=== PATIENT | female | born 1990 | race Caucasian/White ===

== ENCOUNTER → 2020-02-14 13:08 | Outpatient (BNVA) | payer MEDICAID, SELFPAY | PROVIDERS: Family Provider Family Medicine; Visit Provider Obstetrics & Gynecology | DX: N93.9 Abnormal uterine and vaginal bleeding, unspecified (principal) | CPT/HCPCS: 76830 ==

== ENCOUNTER → 2020-02-28 13:46 | Outpatient (BNVA) | payer MEDICAID, SELFPAY | PROVIDERS: Family Provider Family Medicine; Visit Provider Obstetrics & Gynecology | DX: Z30.9 Encounter for contraceptive management, unspecified (principal); N93.9 Abnormal uterine and vaginal bleeding, unspecified | CPT/HCPCS: 81025 ==

== ENCOUNTER → 2020-04-10 10:07 | Outpatient (BNVA) | payer BC, MEDICAID, SELFPAY | PROVIDERS: Family Provider Family Medicine; Visit Provider Obstetrics & Gynecology | DX: N93.9 Abnormal uterine and vaginal bleeding, unspecified (principal) | CPT/HCPCS: 85025 ==

== ENCOUNTER → 2021-04-23 15:29 | Outpatient (BNVA) | payer BC, MEDICAID, SELFPAY | PROVIDERS: Family Provider Family Medicine; Visit Provider Obstetrics & Gynecology | DX: D64.9 Anemia, unspecified (principal) | CPT/HCPCS: 85025 ==

== ENCOUNTER 2022-11-04 08:03 | Outpatient (CLI) | payer BC, MEDICAID, SELFPAY ==
--- NOTE | 2022-11-04 08:12 | CT_ITS ---
WS: [id number] CT PELVIS NONCONTRAST HISTORY: IRREGULAR MENSTRUATION/ABN UTERINE VAGINAL BLEEDING TECHNIQUE: Contiguous imaging is performed of the pelvis without contrast. Coronal and sagittal refor mats are reviewed. All CT scans at [facility] use at least one of these dose optimization mani hniques: automated exposure control; mA and/or kV adjustment per patient size (includes targeted exam s where dose is matched to clinical indication); or iterative reconstruction. DLP: 250.77 mGy.cm COMPARISON: Ultrasound 02/14/2020 Mildly retroverted uterus. Uterine measurements are difficult on CT but the uterus does appear slight ly enlarged extending over a length of 9.2 cm. There is mild fluid distention of the endometrial cavi ty. Several small follicles within the RIGHT ovary. No cyst. No LEFT adnexal masses. The visualized GI tr act in the pelvis is normal. No free fluid. No adenopathy. Mild SI joint arthritis. IMPRESSION: 1. Mildly enlarged slightly retroverted uterus. 2. Recommend transvaginal pelvic ultrasound evaluation to evaluate for dysfunctional uterine bleeding .
== END 2022-11-04 08:04 | disposition home or self-care (01) ==
PROVIDERS: Family Provider Family Medicine; Visit Provider Nurse Practitioner Family
DX: N92.6 Irregular menstruation, unspecified (principal); N93.9 Abnormal uterine and vaginal bleeding, unspecified; N85.2 Hypertrophy of uterus; N85.4 Malposition of uterus
CPT/HCPCS: 72192

== ENCOUNTER 2022-11-06 10:33 | Emergency (ER) | payer BC, MEDICAID, SELFPAY ==
[2022-11-06 11:06] VITALS: BP 133/90; PULSE 90; RESP 16; TEMP 36.8; O2SAT 95
--- NOTE | 2022-11-06 11:19 | XR_ITS ---
WS: [id number] Exam: XR knee RT 3V* [id number] Date/Time of Exam: 11/06/2022 11:23 AM Reason For Exam: dislocation yesterday; laxity Comparison 03/20/2009. No acute fracture or dislocation. Ovoid calcification in the central joint probably a synovial osteoc hondroma. No joint effusion. IMPRESSION: 1. No fracture or dislocation. 2. 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
--- NOTE | 2022-11-06 11:19 | ED_ITS ---
HPI - Extremity Injury (Lower) General: Chief Complaint: Extremity Problem,Nontraumatic Stated Complaint: previous knee dislocation, wants xrays Time Seen by Provider: 11/06/22 10:37 Source: patient Mode of arrival: ambulatory Limitations: no limitations History of Present Illness: Patient is a 32-year-old female who presents to the emergency department complaining of right knee pain status post patellar dislocation last night. 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 However, today she states that she has been walking around extra sore and states that she is fearful that it is going to become dislocated again. She presents stating that she would like x-rays to make sure that structurally everything is normal, and wants to know if she can possibly obtain a brace for her knee. She states that the right knee is minimally swollen compared to the left, but otherwise she has no significant concerns in terms of pain or other symptoms. She was able to ambulate as normal, though as mentioned she is fearful of dislocating again. She denies any history of hypermobility disorders. complaint: knee injury Onset (ago): day(s) Injury: Right: knee (Patellar dislocation) Place: home Relieving factors: immobilization Exacerbating factors: weight bearing and movement Other symptoms: none Review of Systems Const: Denies: fever(s) or chills Eyes: Denies: change in vision or blurry vision Card: Denies: chest pain, palpitations, irregular heart rhythm, lightheadedness, syncope or dyspnea on exertion Resp: Denies: dyspnea, productive cough or pain on inspiration GI: Denies: abdominal pain, nausea, vomiting, heartburn or diarrhea : Denies: dysuria Musc: Reports: joint pain (R knee); Denies: neck pain, back pain, extremity pain (Right knee), extremity swelling (Right knee), joint swelling, joint redness, joint warmth or limited range of motion Skin/Breast: Denies: rash Neuro: Denies: numbness in extremities, weakness in extremities or sensory changes COUNT INCLUDES THE [facility] ED PFSH: Medical History No pertinent past medical history Denies diabetes, asthma, hypertension, seizures, DVT/PE PMD: Tati Huffman Surgical History No pertinent past surgical history Family History Grandmother Colon cancer maternal, diagnosed at age 86 Denies family history of Ovarian cancer Diabetes Heart disease Breast cancer Bleeding disorder Uterine cancer Thyroid disease Stroke Physical Exam Const: COMMON NORMALS: no acute distress, patient oriented x3, alert and well nourished GENERAL APPEARANCE: cooperative and comfortable ORIENTATION/CONSCIOUSNESS: Yes awake Extremity: COMMON NORMALS: full ROM, capillary refill normal, no joint enlargement, no clubbing, cyanosis or edema, no calf tenderness and no pedal edema NARRATIVE EXTREMITY EXAM: The right knee is minimally swollen compared to the left. No signs of trauma, bruising, or deformity. The right patella is hypermobile compared to the left. Normal range of motion bilaterally without pain. No significant signs of joint effusion. No tenderness to palpation over bony landmarks. RIGHT LOWER EXTREMITY: Yes knee joint Right knee: Yes inspection (normal gross inspection), Yes ROM (normal) and Yes neurovascular exam (normal) Neuro: COMMON NORMALS: patient oriented x3 SENSORIUM/ORIENTATION: Yes alert Skin: COMMON NORMALS: no rashes or lesions noted GENERAL SKIN EXAM: no rashes or lesions noted Course Vital Signs: Vital signs: Vital Signs Temperature 98.2 F 11/06/22 11:06 Pulse Rate 80 11/06/22 12:03 Respiratory Rate 16 11/06/22 12:03 Blood Pressure 140/82 11/06/22 12:03 Pulse Oximetry 97 11/06/22 12:03 MDM - Extremity Injury (Lower) Medical Decision Making Patient's x-ray showing an osteochondroma but otherwise normal. Patella was reduced yesterday by patient. She will be placed in an IVETTE wrap here with directions to obtain a Velcro knee sleeve or neoprene brace to help support. We will get her follow-up with orthopedics. Discharge Plan Discharge Patient Disposition: Home Clinical Impression: Dislocation of right patella Qualifiers: Encounter type: initial encounter Qualified Code(s): S83.004A - Unspecified dislocation of right patella, initial encounter Condition: Stable Prescriptions: No Action ascorbic acid (vitamin C) 500 mg capsule PO prenat.vits,dulce maria,[id number] Tablet 1 tab PO DAILY Mirena 20 mcg/24 hours (6 yrs) 52 mg intrauterine device 1 device intrauterine .every 5 years Qty: 1 0RF Discharge Orders: Discharge ED (Routine); Ordered 11/06/22 Ordered By: Rani Ley Patient Instructions: Patellar Dislocation (ED) Activity Restrictions/Additional Instructions: As discussed, you may obtain a Velcro or neoprene knee sleeve for support of your right knee. Case management should reach out to you shortly in regards to orthopedic evaluation. 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
[2022-11-06 12:03] VITALS: BP 140/82; PULSE 80; RESP 16; O2SAT 97
--- NOTE | 2022-11-06 15:21 | DCPLANNER ---
Addendum entered by Barbara Jarvis 11/08/22 13:45: reservation manager received the following message from the ortho clinic regarding follow up appointment: spoke to patient mom Emelyn, as far as she knew Sue was having to hold off on any treatment for the knee at this time. she needs to wait for summer due to school. Mom is going to relay our msg and have her call us back to confirm this. Original Note: reservation manager had message to schedule a follow up appointment for patient with ortho. reservation manager sent patients information to the front office staff at ortho. Patients information will be printed and reviewed. Clinic will call patient with appointment information.
--- NOTE | 2022-11-07 11:36 | DCPLANNER ---
secondary market manager called patient due to no primary care physician - patient sees Tati Huffman at [facility]
== END 2022-11-06 12:05 | disposition home or self-care (01) ==
PROVIDERS: Emergency Provider Physician Assistant; PCP Nurse Practitioner Family
DX: S83.004A Unspecified dislocation of right patella, initial encounter (principal); D21.21 Benign neoplasm of connective and other soft tissue of right lower limb, including hip; X58.XXXA Exposure to other specified factors, initial encounter
CPT/HCPCS: 73562; 99283

== ENCOUNTER → 2022-12-16 10:22 | Outpatient (BNVA) | payer BC, MEDICAID, SELFPAY | PROVIDERS: PCP Nurse Practitioner Family; Visit Provider Obstetrics & Gynecology | DX: N92.6 Irregular menstruation, unspecified (principal); N83.202 Unspecified ovarian cyst, left side; N83.201 Unspecified ovarian cyst, right side | CPT/HCPCS: 76830 ==

== ENCOUNTER → 2023-01-13 09:00 | Outpatient (BNVA) | payer BC, MEDICAID, SELFPAY | PROVIDERS: PCP Nurse Practitioner Family; Visit Provider Obstetrics & Gynecology | DX: N92.6 Irregular menstruation, unspecified (principal) | CPT/HCPCS: 84443; 85025 ==

== ENCOUNTER 2023-01-27 09:34 | Emergency (ER) | payer BC, MEDICAID, SELFPAY ==
[2023-01-27 09:42] VITALS: BP 159/84; PULSE 82; RESP 18; O2SAT 100; BMI 36.3
[2023-01-27 09:48] VITALS: BP 159/84; PULSE 87; RESP 18; TEMP 36.6; O2SAT 100
--- NOTE | 2023-01-27 09:49 | XRR_ITS ---
PROCEDURE INFORMATION: Exam: XR Chest Exam date and time: 01/27/2023 10:03 AM Age: 32 years old Clinical indication: Cough; Additional info: Cough, back pain TECHNIQUE: Imaging protocol: Radiologic exam of the chest. Views: 1 view. COMPARISON: No relevant prior studies available. FINDINGS: Lungs: Unremarkable. No consolidation. Pleural spaces: Unremarkable. No pleural effusion. No pneumothorax. Heart/Mediastinum: Unremarkable. No cardiomegaly. Bones/joints: Unremarkable. XR/XR chest 1V portable [id number] IMPRESSION: No acute findings.
--- NOTE | 2023-01-27 09:50 | W.ED.URI ---
HPI - URI/Sore Throat General: Chief Complaint: Back Pain/Injury Stated Complaint: back pain, bad cough Time Seen by Provider: 01/27/23 09:35 Source: patient Mode of arrival: ambulatory Limitations: no limitations History of Present Illness: Patient is a nice 32-year-old female presents to ED today with complaint of a cough over the past 2 months and left-sided back pain that she began noticing approximately 3 days ago. She does feel like back pain is worse with coughing and movement. She states when cough initially started she was placed on azithromycin by her primary care provider. She thought symptoms were improving but then they returned and have been present since. No hemoptysis. She is an everyday smoker. She reports feeling like she cannot take a deep breath. No severe dyspnea or dyspnea with exertion. Denies nasal congestion, rhinorrhea, sore throat. She has not had any fevers during the course of her illness. MD elicited complaint: cough Onset (ago): month(s) Consistency: constant Severity: moderate Description of mucous: clear Able to tolerate fluids by mouth: Yes Exacerbating factors: other (movement/coughing worsens back pain) Associated symptoms: Deny abdominal pain, chills, chest pain, diarrhea, fever(s), headache(s), nausea or vomiting Treatments prior to arrival: none Review of Systems Const: Denies: fever(s), chills, body aches, fatigue or malaise Eyes: Denies: change in vision or blurry vision Card: Denies: chest pain, palpitations, irregular heart rhythm, edema, swelling of feet/ankles, lightheadedness, syncope, pre-syncope, dyspnea on exertion, orthopnea, leg pain with exertion or acrocyanosis Resp: Reports: non-productive cough and chest congestion; Denies: dyspnea, productive cough, wheezing, pain on inspiration or hemoptysis GI: Denies: abdominal pain, nausea, vomiting, heartburn or diarrhea : Denies: flank pain, difficulty voiding, dysuria, urinary frequency, urinary urgency or urinary hesitancy Musc: Reports: back pain; Denies: neck pain, extremity pain, extremity swelling, joint pain, joint swelling, joint redness or joint warmth Skin/Breast: Denies: rash Neuro: Denies: headache(s), numbness in extremities, weakness in extremities, sensory changes or dizziness PFSH ED PFSH: Medical History No pertinent past medical history Denies diabetes, asthma, hypertension, seizures, DVT/PE PMD: Tati Huffman Surgical History No pertinent past surgical history Family History Grandmother Colon cancer maternal, diagnosed at age 86 Denies family history of Ovarian cancer Diabetes Heart disease Breast cancer Bleeding disorder Uterine cancer Thyroid disease Stroke Physical Exam Const: COMMON NORMALS: no acute distress, average body habitus, patient oriented x3, no limitations, healthy appearing, alert and well nourished ORIENTATION/CONSCIOUSNESS: Yes awake, Yes oriented to person, Yes oriented to place and Yes oriented to time HENMT: COMMON NORMALS: normocephalic, atraumatic and Normal external nose present HEAD & SCALP: normal to inspection, normocephalic and atraumatic FACE & SINUS: normal facial exam and sinuses nontender NOSE: Normal external nose present MOUTH: Normal oral and palatal mucosa present, lip normal and tongue normal THROAT: posterior oropharynx normal, tonsils normal and uvula midline Eye: GENERAL EYE: appearance normal, both eyes and all related structures Neck/C-Spine: COMMON NORMALS: full ROM, no lymphadenopathy, supple and no meningeal signs Chest: COMMONS NORMALS: normal inspection of the chest OTHER: mild TTP L posteriolateral chest wall Resp: COMMON NORMALS: normal respiratory effort and clear to auscultation bilaterally AUSCULTATION: clear to auscultation bilaterally Cardio: COMMON NORMALS: regular rate and regular rhythm RATE: regular rate RHYTHM: regular rhythm GI: COMMON NORMALS: Normal to inspection, nondistended, normoactive bowel sounds present, Soft to palpation, non-tender, No hepatosplenomegaly present and no masses PALPATION: Yes Soft to palpation and Yes No hepatosplenomegaly present : COMMON NORMALS: Yes no CVA tenderness BLADDER/KIDNEY EXAM: Yes no CVA tenderness Back/Pelvis: COMMON NORMALS: no CVA tenderness, thoracic and lumbar spine normal to inspection, no thoracic nor lumbar tenderness and thoraco-lumbar ROM normal Extremity: COMMON NORMALS: normal to inspection, capillary refill normal, no clubbing, cyanosis or edema, no calf tenderness and no pedal edema GENERAL: Yes normal exam except as noted Neuro: COMMON NORMALS: patient oriented x3, moves all extremities, no focal motor deficits, no sensory deficits noted and gait normal SENSORIUM/ORIENTATION: Yes alert, Yes oriented to person, Yes oriented to place and Yes oriented to time MENINGEAL SIGNS: Yes no meningeal signs Skin: COMMON NORMALS: no rashes or lesions noted GENERAL SKIN EXAM: no rashes or lesions noted Course Vital Signs: Vital signs: Vital Signs Temperature 97.9 F 01/27/23 09:48 Pulse Rate 87 01/27/23 09:48 Respiratory Rate 18 01/27/23 09:48 Blood Pressure 159/84 01/27/23 09:48 Pulse Oximetry 100 01/27/23 09:48 Oxygen Delivery Me thod Room Air 01/27/23 09:48 MDM - URI/Sore Throat Medical Decision Making Patient appears in no acute distress. Her vital signs are stable. CXR with no acute findings. 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 Due to length of symptoms patient will be placed on steroids and antibiotics for treatment of a bacterial bronchitis. Recommend follow-up with primary care later this week. Return ED precautions given. Lab Data Radiology Impressions Chest X-Ray 01/27/23 09:49 IMPRESSION: No acute findings. All radiology interpretation(s) finalized by discharge Discharge Plan Discharge Patient Disposition: Home Clinical Impression: Bronchitis Condition: Stable Prescriptions: New dexamethasone 6 mg tablet 6 mg PO DAILY Qty: 6 0RF levofloxacin 500 mg tablet 500 mg PO DAILY 7 Days Qty: 7 0RF No Action ascorbic acid (vitamin C) 500 mg capsule PO prenat.vits,dulce maria,[id number] Tablet 1 tab PO DAILY norethindrone-e.estradiol-iron [Junel FE 1.5/30 (28)] 1.5 mg-30 mcg (21)/75 mg (7) tablet 1 tab PO DAILY Qty: 84 3RF Vitamin Plus Low Iron 27 mg iron- 1 mg tablet 1 tab PO DAILY Qty: 90 4RF Discharge Orders: Discharge ED (Routine); Ordered 01/27/23 Ordered By: Rani Ley Referrals: Nathanael,AMINATA Duffy [Primary Care Provider] - Patient Instructions: Acute Bronchitis (ED) Coding Level of Care Code ED Hot Kettle Tender for Chg Fwd
== END 2023-01-27 10:45 | disposition home or self-care (01) ==
PROVIDERS: Emergency Provider Physician Assistant; PCP Nurse Practitioner Family
DX: J40 Bronchitis, not specified as acute or chronic (principal)
CPT/HCPCS: 71045; 99283